=== PATIENT | male | born 1975 | race African-American/Black ===

== ENCOUNTER 2020-10-23 22:35 | Emergency (ER) | payer MEDICAID, OTHER ==
[~2020-10-23] VITALS: Ht 193 cm; Wt 155.9 kg
--- NOTE | 2020-10-23 22:46 | NUR ---
EKG IN TRIAGE
[2020-10-23] MEDS ORDERED: ACETAMINOPHEN 500 MG TABLET ONE (22:49)
[2020-10-23] MEDS ORDERED: ACETAMINOPHEN 500 MG TABLET PO ONE (23:00)
[2020-10-24] MEDS ORDERED: ACETAMINOPHEN 500 MG TABLET ONE (00:30)
[2020-10-24 00:37] VITALS: BP 141/91
--- NOTE | 2020-10-24 01:11 | NUR ---
PATIENT UPSET ABOUT HAVING TO HAVE HIS BLOOD DRAWN. pATIENT ALLOWED rn TO DRAW BLOOD, BUT WAS UNSUCCESSFUL DUE TO PATIENT BEING VERY ANXIOUS AND NOT SITTING STILL. PATIENT PROCEEDED TO [facility] FROM THE ER. pROVIDER AWARE
== END 2020-10-24 01:14 | disposition left against medical advice (07) ==
LOC: ED 23:00
DX: U07.1 COVID-19 (principal); J06.9 Acute upper respiratory infection, unspecified; J20.9 Acute bronchitis, unspecified; R00.0 Tachycardia, unspecified; F17.200 Nicotine dependence, unspecified, uncomplicated
CPT/HCPCS: 71045; 93005; 99283